=== PATIENT | female | born 2000 | race Caucasian/White ===

== ENCOUNTER → 2023-12-16 | Outpatient (CLI) | payer SELFPAY, OTHER ==
--- NOTE | 2023-12-16 15:04 | US_ITS ---
STUDY: ULTRASOUND BREAST - RIGHT REASON FOR EXAM: Female, 23 years old. Right axillary mass. TECHNIQUE: Axial and longitudinal images of the RIGHT breast were performed with a high resolution ultrasound transducer. # OF IMAGES: 35 COMPARISON: None. FINDINGS: RIGHT Breast: The right axillary region was examined with ultrasound. Finding suggestive of 5.4 cm x 4.4 cm x 2.1 cm lipoma. US/Breast Limited Unilateral IMPRESSION: Findings suggestive of a 5.4 cm x 4.4 cm x 2.1 cm lipoma. ASSESSMENT CATEGORY: BIRADS Category 2: Benign. A letter regarding these results will be sent to the patient by the facility within 30 days. Electronically Signed: Conor Sexton MD at 14:28 EST ,
== END | disposition home or self-care (01) ==
LOC: OPUS 15:02
DX: N63.15 Unspecified lump in the right breast, overlapping quadrants (principal)
CPT/HCPCS: 76642